=== PATIENT | male | born 1945 | race Caucasian/White ===

== ENCOUNTER 2019-11-12 14:56 | Outpatient (CLI) | payer MEDICARE ==
--- NOTE | 2019-11-12 16:59 | MRI ---
MRI lumbar spine noncontrast HISTORY: Low back pain. L4 wedge fracture. Recent fall with worsening back pain. FINDINGS: Conus medullaris has a normal appearance. There is desiccation of the lowest 4 intervertebr al discs. Compression of the central aspect of the T12 vertebral body, by approximately 40%, is present with ed ematous signal throughout the bone marrow of the vertebral body, extending to the base of each pedicle. No significant retropulsion. Compression of the L1 superior endplate with loss of height by approximately 30%. Moderate amount of edema within the vertebral body around the endplate compression. No involvement of the posterior elements. No significant retropulsion. At the L4 level, there is subacute compression of the inferior endplate by approximately 25%. Minimal residual edema. Heterogeneous signal into the disc space likely related to resolving hemorrhage. T12-L1: Mild osteophytosis. Central canal and neural foramina are patent. L1-2: Mild osteophytosis. Central canal and neural foramina are patent. L2-3: Disc space narrowing. Mild posterior disc bulge and circumferential degenerative changes. Moder ate stenosis of the central canal. Mild to moderate stenosis of each neural foramen. L3-4: Minimal disc bulge. Circumferential degenerative changes with prominent facet hypertrophy. Mild stenosis of the central canal. Mild to moderate stenosis of each neural foramen. L4-5: Mild posterior disc bulge with minimal effacement of the thecal sac but no significant stenosis evident. Right and left lateral bulging of the disc and posterior degenerative changes result in severe bilateral foraminal stenoses. L5-S1: Minimal disc bulge. Thecal sac is patent. Degenerative changes result in severe bilateral fora alondra stenosis, right greater than left. IMPRESSION: Acute partial compression fractures involving the T12 and L1 vertebral bodies. No signifi cant retropulsion. Subacute appearance of the mild L4 vertebral compression. Prominent multilevel degenerative changes throughout the lumbar spine as detailed above, with stenosi s most severe at the right neural foramen at the lumbosacral junction. Clinical correlation regarding the right L5 dermatome is required.
== END 2019-11-12 14:57 | disposition home or self-care (01) ==
LOC: SCSMRI 14:56
PROVIDERS: ATTEND Specialist
DX: S32.010A Wedge compression fracture of first lumbar vertebra, initial encounter for closed fracture (principal); S32.040A Wedge compression fracture of fourth lumbar vertebra, initial encounter for closed fracture; S22.089A Unspecified fracture of T11-T12 vertebra, initial encounter for closed fracture
CPT/HCPCS: 72148

== ENCOUNTER 2020-01-14 12:24 | Inpatient (IN) | payer MEDICARE ==
[2020-01-14 12:58] LABS: #Eosinphils 0.2 thou/uL (0.0-0.7); #Lymphocytes 0.8 thou/uL (1.20-3.40); #Monocytes 0.6 thou/uL (0.11-0.59); #Neutrophils 6.9 thou/uL (1.40-6.50); %Basophils 0.6 % (0.0-1.0); %Eosinophils 2.1 % (0.0-10.0); %Lymphocytes 9.9 % (21.0-51.0); %Monocytes 6.8 % (0.0-10.0); %Neutrophils 80.6 % (42.0-75.0); Hemoglobin 14.3 g/dL (14.0-18.0); Mean Corpuscular HGB CONC 32.5 g/dL (32.0-36.0); Mean Corpuscular Hemoglobin 28.8 pg (27.0-31.0); Mean Corpuscular Volume 88.7 fL (78.0-98.0); Platelet Count 202 thou/uL (130-400); RBC Distribution Width 13.2 % (11.5-14.5); Red Blood Cell (RBC) Count 4.95 mill/uL (4.70-6.10); White Blood Cell (WBC) Count 8.5 thou/uL (4.8-10.8)
[2020-01-14 13:04] LABS: PTT 29.1 SEC (22.9-36.1); Prothrombin Time 12.8 SEC (12.0-14.7)
[2020-01-14 13:21] LABS: ALT (SGPT) Less than 7 U/L (8-55); AST (SGOT) 16 U/L (5-34); Albumin 3.9 g/dL (3.4-4.8); Alkaline Phosphatase 70 U/L (40-110); Anion Gap 11 mmol/L (10-20); BUN (Urea Nitrogen) 20 mg/dL (8.4-25.7); Bilirubin, Total 0.6 mg/dL (0.2-1.2); Calc. Creatinine Clearance 0 mL/min (70-130); Calcium 9.2 mg/dL (7.8-10.44); Carbon Dioxide 26 mmol/L (23-31); Chloride 105 mmol/L (98-107); Estimated GFR-MDRD 86; Globulin 2.8 g/dL (2.4-3.5); Glucose 154 mg/dL (83-110); Potassium 4.3 mmol/L (3.5-5.1); Protein, Total 6.7 g/dL (5.8-8.1); Sodium 138 mmol/L (136-145)
--- NOTE | 2020-01-14 13:44 | CT ---
EXAM: CT Pelvis WO Con PROVIDED CLINICAL HISTORY: Injury after a mechanical fall. Suspected left hip fracture. COMPARISON: None FINDINGS: A comminuted intertrochanteric left hip fracture is visualized with mild impaction of fracture fragme nts. Lesser trochanter fracture fragment is displaced medially. No additional fracture is seen, and there is no evidence of a hip dislocation. There is subcutaneous soft tissue swelling adjacent to the intertrochanteric left hip fracture. No discrete hematoma is visualized. Vertebroplasty changes are seen involving the L4 vertebral body with mild degenerative change involvi ng the visualized lower lumbar spine. Vascular calcifications are seen in the iliac and visualized femoral arteries. IMPRESSION: Comminuted intertrochanteric left hip fracture.
[2020-01-14] MEDS ORDERED: PROPOFOL 200 MG/20 ML VIAL ONE (13:47)
[2020-01-14] MEDS ORDERED: Rocuronium Bromide 10 MG/ML (10ML VIAL) ONE (13:47)
[2020-01-14] MEDS ORDERED: Lidocaine 1% PF 5 ML VIAL ONE (13:47)
[2020-01-14] MEDS ORDERED: Ondansetron PF 4 MG/2 ML Vial ONE ×2 (13:47→14:42)
[2020-01-14] MEDS ORDERED: PHENYLEPHRINE-NS 100 MCG/ML 10 ML SYRINGE ONE (13:47)
[2020-01-14] MEDS ORDERED: Glycopyrrolate 0.2 MG/ML 5 ML SYRINGE ONE (13:47)
--- NOTE | 2020-01-14 13:52 | CT ---
LUMBAR SPINE CT WITHOUT CONTRAST: HISTORY: Post traumatic pain. Mechanical fall. COMPARISON: None. FINDINGS: Visualized solid organs are unremarkable. There is atrophy of the pancreas. Bilobed 4.2 x 1.8 cm hypodensity in the right renal cortex compatible with a cyst. No evidence of obs tructive uropathy. Symmetric attenuation of the paraspinal muscles. Visualized sacrum and iliac wings are unremarkable. There is diffuse bony mineralization. Previous vertebroplasty at T12, L1 and L2. There is vacuum disc phenomenon at T12-L1 as well as T11-T12. Currently, there is no paraspinal hematoma. There does appear to be irregularity involving the inferior endplate of T12 suggesting acute upon chr onic compression fracture. There is no evidence of a compression fracture at L1, L2, L3, L4 or L5. Mild chronic compression deformity along the inferior aspect of L4 is noted. There is mild retropulsion without significant stenosis at T12 and at L1. Limited option the contents of the central spinal canal and neural foramina due to technique. T10-T11, T11-T12 and T12-L1 do not demonstrate any high-grade central canal stenosis. L1-L2: No high-grade central canal stenosis or high-grade foraminal narrowing. L2-L3: Mild narrowing of both subarticular zones due to disc material. There may be some mass effect upon bilateral traversing L4 nerve roots. Overall mild central canal stenosis at the thecal sac. Moderate bilateral foraminal narrowing. L3-L4: Broad-based disc bulge, ligament flavum thickening and facet hypertrophy result in mild centra l canal stenosis. Mild to moderate bilateral neural foraminal narrowing. L4-L5: Broad-based disc bulge with central disc protrusion, ligament flavum thickening and facet hype rtrophy are noted. There is mild central canal stenosis. Moderate to severe bilateral neural foraminal narrowing. L5-S1: Broad-based disc bulge with a right subarticular protrusion. There is mass effect and partial obscuration of traversing right S1 nerve root. No significant stenosis of the thecal sac. Moderate to severe right and moderate left neural foraminal narrowing. IMPRESSION: 1. Previous vertebroplasty at T12, L1 and L4. 2. There does appear to be an acute compression fracture along the inferior endplate of T12. Correlat e for point tenderness. 3. Degenerative changes of the lumbar spine as above. Transcribed Date/Time: 01/14/2020 2:10 PM
[2020-01-14] MEDS ORDERED: Morphine 4 MG/ML VIAL ONE (13:53)
--- NOTE | 2020-01-14 14:11 | RAD ---
Exam:Left knee 4 views HISTORY: Fall. Pain. COMPARISON: None FINDINGS: Uncomplicated left knee arthroplasty. No fracture, cortical irregularity or periosteal reac tion. Vascular calcifications are noted. IMPRESSION: No fracture.
--- NOTE | 2020-01-14 14:15 | RAD ---
PORTABLE CHEST: 01/14/20 HISTORY: Fall. COMPARISON: A 04/04/16 study. Heart size appears slightly enlarged. Postop sternotomy changes. Lungs show some chronic change. No i nfiltrates. No pneumothorax. No rib fractures identified. IMPRESSION: Cardiomegaly. No acute process demonstrated. POS: [facility]
[2020-01-14] MEDS ORDERED: CEFAZOLIN 2 GM in Premix Bag 1 BAG IVPB SCH (14:30)
[2020-01-14] MEDS ORDERED: Fentanyl 100 MCG/2 ML VIAL ONE ×5 (15:10→17:58)
--- NOTE | 2020-01-14 15:13 | RAD ---
LEFT HIP TWO VIEWS: 01/14/20 HISTORY: Fall. Left hip pain FINDINGS/IMPRESSION: There is an intertrochanteric fracture involving the left femur. POS: [facility]O
[2020-01-14] MEDS ORDERED: Sodium Chloride 0.9% 1,000 ML IV SCH (17:19)
[2020-01-14] MEDS ORDERED: Morphine 2 MG/ML SYRINGE SLOW IVP PRN (17:19)
[2020-01-14] MEDS ORDERED: Dextrose 5% in Water 1,000 ML IV PRN (17:19)
[2020-01-14] MEDS ORDERED: Ondansetron PF 4 MG/2 ML Vial IVP PRN (17:19)
[2020-01-14] MEDS ORDERED: hydrALAZINE 20 MG/ML VIAL SLOW IVP PRN (17:19)
[2020-01-14] MEDS ORDERED: Ondansetron ODT 4 MG TAB PO PRN (17:19)
[2020-01-14] MEDS ORDERED: Dextrose 50% Abboject 50 ML SYRINGE SLOW IVP PRN (17:19)
[2020-01-14 20:21] VITALS: BMI 33.6
[2020-01-14] MEDS ORDERED: Famotidine 20 MG TAB PO SCH (21:00)
--- NOTE | 2020-01-14 21:14 | RAD ---
EXAM: Fluoroscopic spot images of the left hip DATE: 01/14/2020 12:00 AM INDICATION: Closed reduction and placement of a left hip cephalomedullary device. History of left hi p intertrochanteric fracture. COMPARISON: Left hip radiograph dated January 14, 2020 2:16 PM FINDIN fluoroscopic spot images were obtained of the left hip following closed reduction and marciano cement of a left hip cephalomedullary device. The fracture alignment of the left hip intertrochanteric fracture is near-anatomic. The left hip cephalad medullary device projects in the e xpected position without gross evidence of complication. The total fluoroscopic time was 45.8 seconds. Cumulative dose was 14.84 mGy. IMPRESSION:Interval reduction and placement of a left hip cephalomedullary device fixating a left hip intertrochanteric fracture. Fracture alignment is near anatomic. The instrumentation projects in the expected position.
[2020-01-14] MEDS: Gabapentin 100 MG CAP PO SCH (21:30)
[2020-01-14] MEDS: Acetaminophen 500 MG TAB PO SCH (21:30)
[2020-01-14] MEDS: Senokot S 8.6-50 MG TAB PO SCH (21:30)
[2020-01-14] MEDS: traMADol HCl 50 MG TAB PO PRN (21:31)
--- NOTE | 2020-01-14 22:22 | HP ---
REQUESTING PHYSICIAN: Dr. Renee. ATTENDING SURGEON: Dr. Cross. CONSULTATIONS: Orthopedics, Dr. Knight. HISTORY OF PRESENT ILLNESS: Patient is a 74-year-old man, who was walking when he tripped and fell landing on his left hip. Patient denies loss of consciousness. He was able to contact family who called 911 and was brought to the emergency department, where he underwent evaluation and examination, was noted to have a comminuted left intertrochanteric hip fracture, at which time we were asked to evaluate the patient for admission and obtain Orthopedic consultation. ALLERGIES: NONE. CURRENT MEDICATIONS: 1. Atorvastatin. 2. Aspirin. 3. Carbidopa and levodopa. 4. Diltiazem. 5. Metoprolol. 6. Myrbetriq. 7. Omeprazole. 8. Simethicone. PAST MEDICAL HISTORY: History of myocardial infarction, type 2 diabetes, hyperlipidemia, hypertension, and Parkinson's. PAST SURGICAL HISTORY: Left shoulder surgery, heart cath, 4-vessel coronary artery bypass graft, and bilateral total knee replacement. SOCIAL HISTORY: Patient lives independently. He denies drug, tobacco, or alcohol use. PHYSICAL EXAMINATION: VITAL SIGNS: Blood pressure 136/73, heart rate 82, respirations 19, oxygen saturation is 96% on room air, and temperature is 97.9. GENERAL: The patient is resting comfortably in bed. He is awake, alert, and oriented x3. Glenda Coma Scale is 15. HEENT: Head is normocephalic. Eyes; extraocular motions are intact. PERRLA bilaterally. Ears are atraumatic without discharge. Oropharynx is clear. NECK: Nontender. Trachea is midline. No JVD. CHEST: Clear to auscultation with good inspiratory and expiratory effort. HEART: Regular rate and rhythm. ABDOMEN: Soft, flat, and nontender with active bowel sounds. PELVIS: Stable with tenderness to palpation to the right hip consistent with his fracture. EXTREMITIES: Neurovascularly intact x4. Bilateral lower extremities do have 1 to 2+ pitting edema, which the patient relates is chronic. BACK: By report is atraumatic and nontender. LABORATORY FINDINGS: White blood cell count 8.5, hemoglobin 14.3, hematocrit 43.8, and platelet 202. Sodium 138, potassium 4.3, chloride 105, CO2 of 26, BUN 20, creatinine 0.87, and glucose 154. LFTs are unremarkable. PT 13, INR 1.0, and PTT 29. RADIOGRAPHIC REPORTS: AP chest x-ray shows no acute process demonstrated. CT of the lumbar spine without contrast shows a possible acute compression fracture along the inferior endplate of T12. Multiple degenerative changes and previous vertebroplasty are noted. CT of the pelvis without contrast shows a comminuted intertrochanteric left hip fracture. Views of the left hip again demonstrate comminuted intertrochanteric femur fracture. Views of the left knee show no fracture. ASSESSMENT/PLAN: 1. Status post ground level fall. 2. Left intertrochanteric femur fracture. 3. History of coronary artery bypass graft, hypertension, hyperlipidemia, and type 2 diabetes. 4. Acute pain secondary to trauma. PLAN: Plan will be to admit the patient to the surgical floor. He has been n.p.o. since this morning and Dr. Knight would like to take him to the operating room today, which he is able to do. Postoperatively, we will begin physical and occupational therapy, pulmonary toilet, gastritis and mechanical VTE prophylaxis and discuss placement at that time. The patient was evaluated with Dr. Cross in the emergency department. Patient was also evaluated in the emergency department by Dr. Knight. Job ID: [id number]
--- NOTE | 2020-01-15 00:12 | OP ---
DATE OF PROCEDURE: 01/14/2020 PREOPERATIVE DIAGNOSIS: Left intertrochanteric femur fracture. POSTOPERATIVE DIAGNOSIS: Left intertrochanteric femur fracture. PROCEDURE PERFORMED: Short TFNA, left proximal femur. ANESTHESIA: General. ESTIMATED BLOOD LOSS: 50 mL. IMPLANTS: Synthes 9 x 170 mm TFNA with 105 mm hip screw. COMPLICATIONS: None. DRAINS: None. SPECIMEN: None. OUTCOME: Near-anatomic alignment. INDICATIONS FOR PROCEDURE: The patient is a 74-year-old gentleman status post ground level fall sustaining a mildly displaced left intertrochanteric femur fracture. After discussion with the patient and his family, we have decided to proceed with surgical stabilization of this fracture. Risks and benefits have been discussed. Risks include, but are not limited to bleeding, infection, nerve injury, DVT, PE, nonunion, malunion, loss of limb or life. They appear to understand and do wish to proceed. Informed consent has been obtained. DESCRIPTION OF PROCEDURE: The patient was brought to the operating room and a time-out performed followed by induction of general anesthesia. Next, he was positioned supine on the fracture table and a sterile prep and drape was performed in the left lateral thigh. Next, a small skin incision was made proximal to the tip of the greater trochanter. After skin was sharply incised, dissection was carried down bluntly such the tip of the greater trochanter could be palpated. A threaded guidewire was passed from the tip of the greater trochanter into the proximal femoral canal. Next, a starting point reamer was passed over this guidewire, obtain a starting point at the tip of the greater trochanter. Next, a 9 x 170 mm TFNA nail was passed into the femoral canal via this hole, delivering it down to an appropriate depth. Next, a second incision was made distal to the first and the outrigger jig was passed up against the lateral cortex of the femur and then a threaded guidewire was passed through the lateral cortex of the femur up into the femoral head approaching a [id number] position. Once appropriately positioned, measurement was taken off this guidewire and then the step drill was set to appropriate depth. The step drill was also passed over the guidewire and then 105 mm hip screw was passed over the guidewire. This was then locked in place and then the locking mechanism backed off a half turn to allow for sliding of the hip screw. Next, using the same distal incision, a single distal cross-lock screw was applied in standard fashion. With completion of this AP lateral, C-arm images were obtained and saved and then the jig was removed from the nail. The two incisions were irrigated with bulb syringe, then closed in layers with 0 Vicryl deep followed by 2-0 Vicryl and naeem for the skin. Xeroform gauze and tape dressing was applied to the thigh and the patient was transferred to recovery room in stable condition. There were no complications. He tolerated the procedure well. Job ID: [id number]
[2020-01-15] MEDS: CEFAZOLIN 2 GM in Premix Bag 1 BAG IVPB SCH ×3 (00:39→16:54)
[2020-01-15] MEDS ORDERED: Insulin Regular 300 UNITS/3 ML VIAL SC PRN (00:49)
--- NOTE | 2020-01-15 01:21 | PRG ---
DATE OF SERVICE: 01/14/2020 SUBJECTIVE: The patient was seen this evening during rounds. He is postop resting comfortably and asleep with no signs of acute distress. Nursing reported no acute events. OBJECTIVE: VITAL SIGNS: Temperature 97.6, pulse 84, respirations 18, oxygen saturation 94% on room air, and blood pressure 93/60. GENERAL: Well-appearing elderly male, lying in bed with no signs of acute distress. PULMONARY: Equal chest rise and fall. No signs of acute respiratory distress. ASSESSMENT: 1. Status post ground level fall. 2. Left intertrochanteric femur fracture, status post repair. 3. History of hypertension. 4. Hyperlipidemia. 5. Coronary artery bypass grafting x4. 6. Myocardial infarction. 7. Type 2 diabetes. 8. Parkinson's. PLAN: Continue current diabetic diet. The patient to receive physical and occupational therapy tomorrow. We will discontinue IV fluids after the 1 L bag has been completed. Repeat blood work in the morning. Home medications have been restarted as clinically indicated with hold parameters for metoprolol and diltiazem. The patient will likely need placement at an acute rehab facility. We will have Physical Therapy assess them and Case Management is to work with us for placement. Job ID: [id number]
[2020-01-15] MEDS: Acetaminophen 500 MG TAB PO SCH ×4 (03:07→19:47)
[2020-01-15] MEDS: traMADol HCl 50 MG TAB PO PRN ×2 (03:08→10:55)
[2020-01-15 05:36] LABS: #Eosinphils 0.1 thou/uL (0.0-0.7); #Lymphocytes 1.2 thou/uL (1.20-3.40); #Monocytes 0.8 thou/uL (0.11-0.59); #Neutrophils 5.5 thou/uL (1.40-6.50); %Basophils 0.5 % (0.0-1.0); %Lymphocytes 15.2 % (21.0-51.0); %Monocytes 10.2 % (0.0-10.0); %Neutrophils 73.2 % (42.0-75.0); Hemoglobin 11.7 g/dL (14.0-18.0); Mean Corpuscular HGB CONC 33.3 g/dL (32.0-36.0); Mean Corpuscular Hemoglobin 29.7 pg (27.0-31.0); Mean Corpuscular Volume 89.1 fL (78.0-98.0); Mean Platelet Volume 7.3 fL (7.4-10.4); Platelet Count 179 thou/uL (130-400); RBC Distribution Width 13.4 % (11.5-14.5); Red Blood Cell (RBC) Count 3.93 mill/uL (4.70-6.10); White Blood Cell (WBC) Count 7.5 thou/uL (4.8-10.8)
[2020-01-15 05:45] LABS: Phosphorus 3.3 mg/dL (2.3-4.7)
[2020-01-15 05:46] LABS: Anion Gap 12 mmol/L (10-20); BUN (Urea Nitrogen) 26 mg/dL (8.4-25.7); Calc. Creatinine Clearance 117 mL/min (70-130); Calcium 8.5 mg/dL (7.8-10.44); Carbon Dioxide 24 mmol/L (23-31); Chloride 105 mmol/L (98-107); Estimated GFR-MDRD 83; Glucose 128 mg/dL (83-110); Magnesium 1.8 mg/dL (1.6-2.6); Potassium 4.2 mmol/L (3.5-5.1); Sodium 137 mmol/L (136-145)
[2020-01-15] MEDS: Tamsulosin HCl 0.4 MG CAP PO SCH (08:15)
[2020-01-15] MEDS: Gabapentin 100 MG CAP PO SCH ×3 (08:15→20:15)
[2020-01-15] MEDS: Senokot S 8.6-50 MG TAB PO SCH ×2 (08:15→20:14)
[2020-01-15] MEDS: Carbidopa/Levodopa 10-100 mg Tablet PO SCH ×2 (08:15→20:15)
[2020-01-15] MEDS: Polyethylene Glycol 3350 17 GM Packet PO SCH (08:16)
[2020-01-15] MEDS ORDERED: Morphine 2 MG/ML SYRINGE SLOW IVP SCH (10:47)
[2020-01-15] MEDS ORDERED: Ibuprofen 200 MG TAB PO PRN (11:36)
[2020-01-15] MEDS: traMADol HCl 50 MG TAB PO SCH ×3 (12:12→23:20)
--- NOTE | 2020-01-15 15:09 | RAD ---
"PRELIMINARY REPORT" EXAM: Fluoroscopic spot images of the left hip DATE: 01/14/2020 12:00 AM INDICATION: Closed reduction and placement of a left hip cephalomedullary device. History of left hi p intertrochanteric fracture. COMPARISON: Left hip radiograph dated January 14, 2020 2:16 PM FINDIN fluoroscopic spot images were obtained of the left hip following closed reduction and marciano cement of a left hip cephalomedullary device. The fracture alignment of the left hip intertrochanteric fracture is near-anatomic. The left hip cephalad medullary device projects in the e xpected position without gross evidence of complication. The total fluoroscopic time was 45.8 seconds. Cumulative dose was 14.84 mGy. IMPRESSION:Interval reduction and placement of a left hip cephalomedullary device fixating a left hip intertrochanteric fracture. Fracture alignment is near anatomic. The instrumentation Transcribed Date/Time: 01/15/2020 3:09 PM
--- NOTE | 2020-01-15 17:00 | PRG ---
DATE OF SERVICE: 01/15/2020 SUBJECTIVE: The patient remains on the surgical floor. The patient is awake and alert, in no distress. The patient reports moderate pain with movement. The patient did have some urinary retention overnight and was in and out cathed once and placed on Flomax. The patient is tolerating a diabetic diet at this time. OBJECTIVE: VITAL SIGNS: Blood pressure 101/62, temperature 97.7, pulse 74, respirations 14, and SpO2 of 95% on room air. GENERAL: Elderly male, lying in hospital bed, in no acute distress. PULMONARY: Equal chest rise and fall. No respiratory distress. Breath sounds clear. EXTREMITIES: Moves all extremities. No edema. NEUROLOGIC: No focal deficits. Alert and oriented. LABORATORY DATA: WBC 7.5, RBC 3.93, hemoglobin 11.7, hematocrit 35.0, platelets 179. Sodium 137, potassium 4.2, chloride 105, BUN 26, creatinine 0.89, estimated GFR 83, and glucose 128. DIAGNOSTICS: There are no new diagnostics today. ASSESSMENT: 1. Status post ground level fall. 2. Left intertrochanteric femur fracture, postop day #1 short TFNA. 3. History of coronary artery bypass graft, hypertension, hyperlipidemia, type 2 diabetes, Parkinson's. 4. Acute traumatic pain. PLAN: Continue physical and occupational therapy. We will schedule the patient's tramadol. We will continue to hold the patient's blood pressure medications as his blood pressures have been sought. We will continue to encourage ambulation and increase fluid intake. We will continue to monitor urinary retention. We will place the patient on VTE prophylaxis with aspirin b.i.d. A rehab screen has been placed. The patient was examined by Dr. Cross during morning rounds. Job ID: [id number]
[2020-01-15] MEDS: Simvastatin 20 MG TAB PO SCH (20:15)
[2020-01-15] MEDS: Aspirin 81 mg Enteric Coated Tablet PO SCH (20:15)
--- NOTE | 2020-01-16 01:22 | PRG ---
DATE OF SERVICE: 01/15/2020 SUBJECTIVE: The patient was seen this evening during rounds. He was resting comfortably and asleep with no signs of acute distress. Nursing reported no acute events. OBJECTIVE: VITAL SIGNS: Temperature 99.2, pulse 80, respirations 16, oxygen saturation 92% on room air, blood pressure 128/63. GENERAL: Well-appearing elderly male, lying in bed, asleep, but no signs of acute distress. PULMONARY: Equal chest rise and fall. No signs of acute respiratory distress. ASSESSMENT: 1. Status post ground-level fall, on aspirin. 2. Left intertrochanteric femur fracture, status post repair. 3. Urinary retention. 4. History of hypertension, hyperlipidemia, coronary artery bypass grafting x4, myocardial infarction, diabetes type 2, and Parkinson's. PLAN: Continue current diet and pain regimen. Continue physical and occupational therapy. Continue home medications as clinically indicated. The patient having previously difficulty with voiding. We will continue to watch urinary output as well as perform postvoid residual checks. The patient has been started on Flomax. He does not have a history of BPH and was not taking the medication previously. He is [facility] a [facility] in [place]. Job ID: [id number] [facility]
[2020-01-16] MEDS: Acetaminophen 500 MG TAB PO SCH ×5 (03:27→23:44)
[2020-01-16] MEDS: traMADol HCl 50 MG TAB PO SCH ×5 (03:30→23:43)
[2020-01-16 06:03] LABS: Hemoglobin 11.2 g/dL (14.0-18.0); Mean Corpuscular HGB CONC 33.9 g/dL (32.0-36.0); Mean Corpuscular Volume 88.4 fL (78.0-98.0); Mean Platelet Volume 7.4 fL (7.4-10.4); Platelet Count 144 thou/uL (130-400); RBC Distribution Width 13.1 % (11.5-14.5); Red Blood Cell (RBC) Count 3.73 mill/uL (4.70-6.10); White Blood Cell (WBC) Count 7.7 thou/uL (4.8-10.8)
[2020-01-16 06:06] LABS: Anion Gap 12 mmol/L (10-20); BUN (Urea Nitrogen) 22 mg/dL (8.4-25.7); Calc. Creatinine Clearance 131 mL/min (70-130); Calcium 8.5 mg/dL (7.8-10.44); Carbon Dioxide 26 mmol/L (23-31); Chloride 101 mmol/L (98-107); Estimated GFR-MDRD Greater than 90; Glucose 144 mg/dL (83-110); Magnesium 1.8 mg/dL (1.6-2.6); Phosphorus 2.4 mg/dL (2.3-4.7); Sodium 135 mmol/L (136-145)
[2020-01-16 06:52] LABS: Band 1 % (5-11); Eosinophils 3 % (0-10); Lymphocytes 13 % (21-51); MDiff Complete? YES; Monocytes 11 % (0-10); Neutrophil 72 % (42-75)
[2020-01-16] MEDS: Gabapentin 100 MG CAP PO SCH ×3 (09:42→20:08)
[2020-01-16] MEDS: Polyethylene Glycol 3350 17 GM Packet PO SCH (09:42)
[2020-01-16] MEDS: Aspirin 81 mg Enteric Coated Tablet PO SCH ×2 (09:42→20:07)
[2020-01-16] MEDS: Tamsulosin HCl 0.4 MG CAP PO SCH (09:42)
[2020-01-16] MEDS: Senokot S 8.6-50 MG TAB PO SCH ×2 (09:42→20:07)
[2020-01-16] MEDS: Carbidopa/Levodopa 10-100 mg Tablet PO SCH ×2 (09:43→20:07)
--- NOTE | 2020-01-16 17:40 | PRG ---
DATE OF SERVICE: 01/16/2020 SUBJECTIVE: The patient was seen this morning during rounds working with Physical Therapy. The patient did have some moderate amount of pain as he was standing using a walker. The patient is only able to stand up using a walker and sit back down on the bed at this time. The patient is postop day #2 for a short TFNA repair for his left proximal femur fracture. The patient's urinary retention has improved. The patient voices no complaints or concerns at this time. OBJECTIVE: VITAL SIGNS: Temperature 98.7, pulse 90, respirations 18, SpO2 of 94% on room air, blood pressure 115/69. GENERAL: Elderly male, awake, alert, attempting to work with Physical Therapy. HEENT: Head is atraumatic and normocephalic. PULMONARY: Equal chest rise and fall, good bilateral breath sounds. No respiratory distress. EXTREMITIES: Moves all extremities, no focal deficits. LABORATORY DATA: WBC 7.7, RBC 3.73, hemoglobin 11.2, hematocrit 33.0, platelets 144. Sodium 135, potassium 4.0 chloride 101, BUN 22, creatinine 0.80, estimated GFR greater than 90 glucose 144, magnesium 1.8. DIAGNOSTICS: There is no new diagnostics to review today. ASSESSMENT: 1. Status post ground level fall, on aspirin. 2. Left intertrochanteric femur fracture, postoperative day #2, status post repair. 3. Urinary retention, resolved. 4. History of hypertension, hyperlipidemia, coronary artery bypass graft x4, myocardial infarction, diabetes type 2, and Parkinson's. 5. Hyponatremia. PLAN: Continue pain regimen and regular diet. Continue physical and occupational therapy. We will place the patient on a free water restriction to 1 L a day as he is slightly hyponatremic. We will continue to watch urinary output. The patient is pending placement to halfway facility in [place]. The plan has been discussed with the patient and family who agrees. Job ID: [id number]
[2020-01-16] MEDS: Simvastatin 20 MG TAB PO SCH (20:08)
[2020-01-16] MEDS: traMADol HCl 50 MG TAB PO PRN (20:10)
--- NOTE | 2020-01-17 02:24 | PRG ---
DATE OF SERVICE: 01/16/2020 SUBJECTIVE: The patient was seen this evening during rounds. He was resting comfortably in bed and asleep. Nursing reported no acute events. OBJECTIVE: VITAL SIGNS: Temperature 98, pulse 80, respirations 18, oxygen saturation 96% on room air, and blood pressure 143/71. GENERAL: Well-appearing elderly male, lying in bed, asleep, in no signs of acute distress. PULMONARY: Equal chest rise and fall. No signs of acute respiratory distress. ASSESSMENT: 1. Status post ground level fall, on aspirin. 2. Left intertrochanteric femur fracture, status post repair. 3. Urinary retention, resolved. 4. History of hypertension; hyperlipidemia; coronary artery bypass grafting x4; diabetes; myocardial infarction; and Parkinson's. PLAN: Continue current diet and pain regimen. Continue physical and occupational therapy. Continue home medications as clinically indicated. The patient is pending placement at a longterm facility. Job ID: [id number]
[2020-01-17] MEDS: traMADol HCl 50 MG TAB PO SCH ×4 (04:26→23:35)
[2020-01-17] MEDS: Polyethylene Glycol 3350 17 GM Packet PO SCH (08:13)
[2020-01-17] MEDS: Gabapentin 100 MG CAP PO SCH ×3 (08:13→19:54)
[2020-01-17] MEDS: Carbidopa/Levodopa 10-100 mg Tablet PO SCH ×2 (08:14→19:53)
[2020-01-17] MEDS: Tamsulosin HCl 0.4 MG CAP PO SCH (08:14)
[2020-01-17] MEDS: Senokot S 8.6-50 MG TAB PO SCH ×2 (08:14→19:54)
[2020-01-17] MEDS: Aspirin 81 mg Enteric Coated Tablet PO SCH ×2 (08:14→19:53)
[2020-01-17] MEDS: Acetaminophen 500 MG TAB PO SCH ×3 (08:21→19:53)
--- NOTE | 2020-01-17 13:38 | PRG ---
DATE OF SERVICE: 01/17/2020 SUBJECTIVE: The patient was seen during morning rounds. The patient is awake, alert, sitting up in hospital bed, in no acute distress. The patient had no overnight events. The patient reports that he slept good last night. The patient continues to tolerate his diet. The patient has no pain currently while lying in bed, but he does report increased pain whenever he works with Physical Therapy. OBJECTIVE: VITAL SIGNS: Temperature 97.7, pulse 80, blood pressure 104/61, SpO2 of93% on room air, and respirations 18. GENERAL: Elderly male, awake, alert, in no distress. PULMONARY: Equal chest rise and fall, bilateral breath sounds clear. ABDOMEN: Soft, nontender, and nondistended. EXTREMITIES: Moves all extremities. No focal deficits. Left hip dressing is clean, dry, and intact. ASSESSMENT: 1. Status post ground level fall on aspirin. 2. Left intertrochanteric femur fracture, postop repair. 3. Urinary retention, resolved. 4. History of hypertension, hyperlipidemia, coronary artery bypass grafting x4, diabetes, myocardial infarction, and Parkinson's. PLAN: Continue current diet. We will increase the patient's schedule tramadol to 100 mg q.6 hours. We will continue physical and occupational therapy. Continue home medications. The patient is pending placement to [facility] facility in [place]. The plan was discussed with the patient and family, who agrees. The patient was examined by Dr. Cross during morning rounds. Job ID: [id number]
[2020-01-17] MEDS: Ibuprofen 200 MG TAB PO SCH ×2 (14:17→23:35)
[2020-01-17] MEDS: Simvastatin 20 MG TAB PO SCH (19:54)
[2020-01-18] MEDS: Acetaminophen 500 MG TAB PO SCH ×4 (03:27→20:22)
--- NOTE | 2020-01-18 03:36 | PRG ---
DATE OF SERVICE: 01/17/2020 SUBJECTIVE: The patient was seen this evening during rounds. He is resting in bed comfortably and asleep with no signs of acute distress. Nursing reported no acute events. OBJECTIVE: VITAL SIGNS: Temperature 98, pulse 81, respirations 18, oxygen saturation 94% on room air, and blood pressure 103/63. GENERAL: Well-appearing elderly male, lying in bed, asleep, with no signs of acute distress. PULMONARY: Equal chest rise and fall. No signs of acute respiratory distress. ASSESSMENT: 1. Status post ground level fall. 2. Left intertrochanteric femur fracture, status post repair. 3. Urinary retention, resolved. 4. History of hypertension. 5. Hyperlipidemia. 6. Coronary artery bypass grafting x4. 7. Myocardial infarction. 8. Type 2 diabetes. 9. Parkinson's. PLAN: Continue current diet and pain regimen. Continue physical and occupational therapy. The patient is pending placement at a senior living facility in [place]. He is ready for discharge at this time. Job ID: [id number]
[2020-01-18] MEDS: Ibuprofen 200 MG TAB PO SCH ×2 (05:31→13:50)
[2020-01-18] MEDS: traMADol HCl 50 MG TAB PO SCH ×3 (05:32→17:50)
[2020-01-18] MEDS: Senokot S 8.6-50 MG TAB PO SCH ×2 (08:37→20:23)
[2020-01-18] MEDS: Tamsulosin HCl 0.4 MG CAP PO SCH (08:42)
[2020-01-18] MEDS: Gabapentin 100 MG CAP PO SCH ×3 (08:42→20:23)
[2020-01-18] MEDS: Aspirin 81 mg Enteric Coated Tablet PO SCH ×2 (08:42→20:23)
[2020-01-18] MEDS: Polyethylene Glycol 3350 17 GM Packet PO SCH (08:43)
[2020-01-18] MEDS: Carbidopa/Levodopa 10-100 mg Tablet PO SCH ×2 (08:43→20:23)
[2020-01-18] MEDS ORDERED: Cyclobenzaprine 10 MG TAB PO PRN (13:38)
[2020-01-18] MEDS ORDERED: Artificial Tears 18 DROP/0.9 ML EA EYE PRN (14:29)
--- NOTE | 2020-01-18 15:01 | PRG ---
DATE OF SERVICE: 01/18/2020 SUBJECTIVE: The patient was seen during morning rounds, sitting up in hospital bed, in no acute distress. The patient reports that he already worked with Physical Therapy today and is tolerating his diabetic diet. The patient's pain is well controlled at this time. Nursing staff notified us that the patient states that he does not take diltiazem anymore, although it was indicated on his med list. OBJECTIVE: VITAL SIGNS: Temperature 97.5, pulse 85, respirations 20, SpO2 of 95% on 2 L nasal cannula, blood pressure 119/78. GENERAL: Elderly male, sitting up in hospital bed, in no acute distress. PULMONARY: Equal chest rise and fall, bilateral breath sounds clear. ABDOMEN: Obese, soft, nontender. EXTREMITIES: Moves all extremities. No focal deficit. Left hip dressing is clean, dry, and intact. LABORATORY DATA: There are no new labs to evaluate today. ASSESSMENT: 1. Status post ground fall on aspirin. 2. Left intertrochanteric femur fracture, postoperative repair. 3. Urinary retention, resolved. 4. History of hypertension, hyperlipidemia, coronary artery bypass grafting x4, diabetes, myocardial infarction, and Parkinson's. PLAN: Continue current diet, and physical and occupational therapy. Continue current pain regimen. We will discontinue diltiazem as the patient reports he does not take this medication. The patient is pending insurance authorization to shelter in [place]. The plan has been discussed with the patient and family who agrees. The plan has been discussed with the attending who agrees. Job ID: [id number]
[2020-01-18] MEDS: Simvastatin 20 MG TAB PO SCH (20:23)
--- NOTE | 2020-01-19 01:07 | PRG ---
DATE OF SERVICE: 01/18/2020 SUBJECTIVE: The patient was seen this evening during rounds. He was resting comfortably and asleep with no signs of acute distress. Nursing reported no acute events. OBJECTIVE: VITAL SIGNS: Temperature 98.3, pulse 85, respirations 18, oxygen saturation 96% on 2 L nasal cannula, and blood pressure 147/82. GENERAL: Well-appearing elderly male, lying in bed with no signs of acute distress. PULMONARY: Equal chest rise and fall. Clear breath sounds bilaterally. No signs of acute respiratory distress. ASSESSMENT: 1. Status post ground level fall, on aspirin. 2. Left intertrochanteric femur fracture, status post repair. 3. Urinary retention, resolved. 4. History of hypertension, hyperlipidemia, coronary artery bypass graft x4, diabetes, myocardial infarction, and Parkinson's. PLAN: Continue current diet and pain regimen. Continue physical and occupational therapy. The patient is pending placement at [facility] in [place]. He is ready for discharge at this time. Job ID: [id number]
[2020-01-19] MEDS: Acetaminophen 500 MG TAB PO SCH ×4 (04:09→19:19)
[2020-01-19] MEDS: Ibuprofen 200 MG TAB PO SCH ×2 (04:09→05:35)
[2020-01-19] MEDS: traMADol HCl 50 MG TAB PO SCH ×2 (04:09→07:21)
[2020-01-19] MEDS: Senokot S 8.6-50 MG TAB PO SCH ×2 (08:33→19:19)
[2020-01-19] MEDS: Carbidopa/Levodopa 10-100 mg Tablet PO SCH ×2 (08:33→19:19)
[2020-01-19] MEDS: Aspirin 81 mg Enteric Coated Tablet PO SCH ×2 (08:34→19:19)
[2020-01-19] MEDS: Tamsulosin HCl 0.4 MG CAP PO SCH (08:34)
[2020-01-19] MEDS: Gabapentin 100 MG CAP PO SCH ×3 (08:34→19:19)
[2020-01-19] MEDS: Polyethylene Glycol 3350 17 GM Packet PO SCH (08:36)
[2020-01-19] MEDS ORDERED: Ibuprofen 200 MG TAB PO PRN (10:09)
[2020-01-19] MEDS ORDERED: traMADol HCl 50 MG TAB PO PRN (10:10)
--- NOTE | 2020-01-19 13:29 | PDOC.GSPN ---
Surgery Progress Note: Subj - Subjective Narrative: Patient is a 74 yo M POD4 for repair of left intertrocanteric fracture sustained after mechanical fall. Patient is doing good he was able to tolerate his diet without any N/V. He reports a BM during his hospitalization. He reports sleeping well overnight. Pain is being managed appropriately. Surgery Progress Note: Obj - Vital signs Vital signs: Vital Signs - Most Recent Temp Pulse Resp BP Pulse Ox 98.8 F 83 18 116/69 96 01/19/20 11:08 01/19/20 11:08 01/19/20 11:08 01/19/20 11:08 01/19/20 11:08 - Physical Exam General: no distress, well developed, well nourished Abdomen: soft, non tender Psychiatric: memory intact, oriented to time, oriented to person, oriented to place, speech is normal Surgery Progress Note: Results - Labs Result Diagrams: 01/16/20 04:49 01/16/20 04:49 Lab results: Laboratory Results - last 24 hr 01/19/20 01/19/20 05:42 12:06 POC Glucose 125 H 157 H Surgery Progress Note: A/P - Plan Plan: Assessment: 1. S/p ground level fall, on aspirin 2. Left intertrocanteric fracture, s/p repair 3. Urinary retention, resolved 4. History of HTN, hyperlipidemia, CABG x4, Diabetes, PR, Parkinsons Plan: 1. Patient is ready for discharge, awaiting SNIF placement 2. Continue PT/OT 3. Continue current diet and pain regimen 4. Change ibuprofen from scheduled to PRN Patient was seen and evaluated by Dr Cross at bedside during morning rounds. Plan was discussed and all were in agreement. Addendum - Physician - Physician Attestation Date/Time: 01/19/20 [id number] I personally performed or re-performed the physical examination and medical decision making. I have verified all student documentation or findings, including history, physical exam and/or medical decision making.
[2020-01-19] MEDS: Simvastatin 20 MG TAB PO SCH (19:19)
--- NOTE | 2020-01-20 02:07 | PRG ---
DATE OF SERVICE: 01/20/2020 SUBJECTIVE: The patient remains on the surgical floor. He is status post ground level fall, in which, he sustained a left intertrochanteric femur fracture. He has undergone operative intervention from this. He has begun working with Physical and Occupational Therapy and he is awaiting placement. He is tolerating a diet. His pain is controlled. PHYSICAL EXAMINATION: VITAL SIGNS: Temperature is 98.9, heart rate 70, blood pressure 145/78, respirations 18, oxygen saturations 95% on 2 L via nasal cannula. GENERAL: The patient is resting comfortably in bed. He is asleep. I did not awaken him for exam. He appears comfortable. RESPIRATIONS: Appear nonlabored. ASSESSMENT/PLAN: 1. Status post ground level fall. 2. Status post open reduction and internal fixation of left intertrochanteric femur fracture. 3. Urinary retention, resolved. 4. History of hypertension, hyperlipidemia, coronary artery bypass graft x4, diabetes, myocardial infarction, and Parkinson's. PLAN: Plan will be to continue supportive care. Encourage Physical and Occupational Therapy and await final placement decision. Job ID: [id number]
[2020-01-20] MEDS: Acetaminophen 500 MG TAB PO SCH ×2 (03:43→07:48)
[2020-01-20] MEDS: Polyethylene Glycol 3350 17 GM Packet PO SCH (08:02)
[2020-01-20] MEDS: Aspirin 81 mg Enteric Coated Tablet PO SCH (08:03)
[2020-01-20] MEDS: Carbidopa/Levodopa 10-100 mg Tablet PO SCH (08:03)
[2020-01-20] MEDS: Gabapentin 100 MG CAP PO SCH (08:03)
[2020-01-20] MEDS: Senokot S 8.6-50 MG TAB PO SCH (08:03)
[2020-01-20] MEDS: Tamsulosin HCl 0.4 MG CAP PO SCH (08:03)
[2020-01-20 10:30] VITALS: BP 130/74; TEMP 97.6
--- NOTE | 2020-01-21 11:29 | DIS ---
DATE OF ADMISSION: 01/14/2020 DATE OF DISCHARGE: 01/20/2020 ADMISSION DIAGNOSES: 1. Status post ground level fall. 2. Left intertrochanteric femur fracture. 3. Urinary retention. 4. History of hypertension, hyperlipidemia, coronary artery bypass graft, old myocardial infarction, and Parkinson. DISCHARGE DIAGNOSES: 1. Status post ground level fall. 2. Status post ORIF of left intertrochanteric femur fracture. 3. Urinary retention, resolved. 4. History of hypertension, hyperlipidemia, coronary artery bypass graft x4, diabetes, old myocardial infarction, previous myocardial infarction, and Parkinson. CONSULTING PHYSICIAN: Dr. Knight. PROCEDURE PERFORMED: Short TFNA left proximal femur. HOSPITAL COURSE: Mr. Tai is a 74-year-old male status post ground level fall. He sustained left intertrochanteric femur fracture. He underwent fixation of left intertrochanteric femur fracture with Dr. Knight. The patient tolerated the procedure well. Postop, the patient has been doing well. Pain is well controlled. However, he developed urinary retention having result with medication and poor posture. He also has history of hypertension, hyperlipidemia, coronary artery disease, previous HI, and Parkinson, all have been stable while staying in the hospital. The patient tolerated his regular diet. His bowel regimen is normal. His urine is adequate. His vital signs have been stable. PHYSICAL EXAMINATION: GENERAL: Currently, the patient is lying in bed comfortable with no acute respiratory distress. VITAL SIGNS: Temperature is 97.6, heart rate 81, respiratory rate 16, O2 saturation 95% on 2 L cannula, and blood pressure 130/74. LUNGS: Clear bilaterally. HEART: Regular rate and rhythm. ABDOMEN: Soft and nondistended. EXTREMITIES: Neurovascularly intact x4. Postop dressing clean, dry, intact. DISCHARGE DISPOSITION: assisted facility. DISCHARGE CONDITION: Fair due to multiple comorbidities and age. DISCHARGE INSTRUCTIONS: The patient is to take medications as directed. The patient is encouraged to work with Physical Therapy and Occupational Therapy. Patient is to continue DVT prophylaxis. The patient will see Dr. Knight in 10 to 14 days. DISCHARGE MEDICATIONS: 1. Tylenol. 2. Aspirin. 3. Metoprolol. 4. Simvastatin. 5. Carbidopa levodopa. 6. Tramadol. 7. Tamsulosin. 8. MiraLAX. 9. Ibuprofen. 10. Gabapentin. 11. Flexeril. Job ID: [id number]
== END 2020-01-20 14:05 | DRG 481 ==
LOC: ERS 12:24 → SDC/OP 18:07 → SURG A 18:52
PROVIDERS: ADMIT Specialist; ATTEND Specialist
PROC: 0QH736Z Insertion of Intramedullary Internal Fixation Device into Left Upper Femur, Percutaneous Approach (ICD-10-PCS; principal; 2020-01-14)
DX: S72.142A Displaced intertrochanteric fracture of left femur, initial encounter for closed fracture (principal); E87.1 Hypo-osmolality and hyponatremia; W01.0XXA Fall on same level from slipping, tripping and stumbling without subsequent striking against object, initial encounter; E11.9 Type 2 diabetes mellitus without complications; E78.5 Hyperlipidemia, unspecified; I10 Essential (primary) hypertension; G20 Parkinson's disease; Z96.653 Presence of artificial knee joint, bilateral; R33.9 Retention of urine, unspecified; Z79.899 Other long term (current) drug therapy; Z79.82 Long term (current) use of aspirin; I25.2 Old myocardial infarction; Z95.1 Presence of aortocoronary bypass graft
CPT/HCPCS: 36415; 36416; 71045; 72131; 72192; 76000; 80048; 80053; 83735; 84100; 85007; 85025; 85027; 85610; 85730; 86850; 86900; 86901; 93005; 94760; 96374; 96375; C1713; J0690; J1815; J2001; J2270; J2405; J2704; J3010

== ENCOUNTER 2020-05-18 16:18 | Outpatient (CLI) | payer MEDICARE ==
--- NOTE | 2020-05-18 18:20 | RAD ---
Exam: XR Knee Lt 4 View STANDARD HISTORY: Left knee pain after fall. COMPARISON: 01/14/2020 FINDINGS: A left total knee prosthesis is again noted without evidence of a hardware complication. No acute fracture, dislocation, or other acute osseous abnormality is identified. Vascular calcifications are again seen posterior to the knee and in the region of the tibial peroneal vessels. Surgical clips are again seen just medial to the proximal tibia. IMPRESSION: 1. No acute osseous abnormality. 2. Left total knee prosthesis.
== END 2020-05-18 16:19 | disposition home or self-care (01) ==
LOC: SCSRAD 16:18
PROVIDERS: ATTEND Family Medicine
DX: M25.562 Pain in left knee (principal); Z96.652 Presence of left artificial knee joint

== ENCOUNTER 2023-03-05 13:39 | Outpatient (CLI) | payer MEDICARE | END 2023-03-05 13:40 | disposition home or self-care (01) | LOC: BICRAD 13:39 | PROVIDERS: ATTEND Nurse Practitioner Family | DX: M54.6 Pain in thoracic spine (principal); M47.814 Spondylosis without myelopathy or radiculopathy, thoracic region | CPT/HCPCS: 72072 ==